=== PATIENT | female | born 1960 | race American Indian/Alaskan Native ===

== ENCOUNTER 2019-01-28 06:53 | Emergency (ER) | payer MEDICAID, OTHER ==
[2019-01-28 06:53] VITALS: BMI 46.2
[2019-01-28 06:58] VITALS: PULSE 84; O2SAT 99
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
[2019-01-28 09:07] VITALS: BP 125/80; RESP 18; TEMP 98
== END 2019-01-28 09:35 | disposition home or self-care (01) ==
LOC: C.ER 06:53
DX: F41.9 Anxiety disorder, unspecified (principal); I10 Essential (primary) hypertension